=== PATIENT | male | born 1950 | race Hispanic/Latino ===

== ENCOUNTER 2017-07-29 09:04 | Emergency (ER) | payer MEDICARE, OTHER ==
[2017-07-29] MEDS ORDERED: ACETAMINOPHEN 325 MG TAB ONE (09:27)
== END 2017-07-29 10:05 | disposition home or self-care (01) ==
LOC: EDH 09:04
DX: S92.512A Displaced fracture of proximal phalanx of left lesser toe(s), initial encounter for closed fracture (principal); X58.XXXA Exposure to other specified factors, initial encounter; Y93.89 Activity, other specified; Y92.098 Other place in other non-institutional residence as the place of occurrence of the external cause; Y99.8 Other external cause status
CPT/HCPCS: 73660

== ENCOUNTER 2017-12-28 07:17 | Emergency (ER) | payer MEDICARE ==
[2017-12-28 07:47] LABS: BASOPHILS % (AUTO) 0.9 % (0.0-5.0); EOSINOPHILS % (AUTO) 4.2 % (0.0-8.0); HEMATOCRIT 51.3 % (42-54); LYMPHOCYTES % (AUTO) 23.4 % (21.0-51.0); MEAN CORPUSCULAR HGB CONC 34.4 g/dL (32.0-36.0); MEAN CORPUSCULAR VOLUME 93.2 fL (79-99); MONOCYTES % (AUTO) 7.6 % (3.0-13.0); NEUTROPHILS % (AUTO) 63.9 % (40.0-77.0); PLATELET COUNT (AUTO) 238 K/uL (130-400); RED CELL DISTRIBUTION WIDTH 13.1 % (11.0-15.5); WHITE BLOOD COUNT (AUTO) 5.1 K/uL (4.8-10.8)
[2017-12-28 07:58] LABS: POTASSIUM 3.8 mmol/L (3.5-5.1)
[2017-12-28 08:02] LABS: APPEARANCE,URINE CLEAR (CLEAR); BILIRUBIN,URINE NEGATIVE (NEGATIVE); COLOR,URINE YELLOW (YELLOW); GLUCOSE, URINE (UA) NEGATIVE (NEGATIVE); KETONES,URINE NEGATIVE (NEGATIVE); LEUKOCYTE ESTERASE ,URINE TRACE (NEGATIVE); NITRATE,URINE NEGATIVE (NEGATIVE); OCCULT BLOOD,URINE TRACE-INTACT (NEGATIVE); PROTEIN,URINE NEGATIVE (NEGATIVE); UROBILINOGEN,URINE 0.2 mg/dL (0.2-1.0)
[2017-12-28 08:04] LABS: ALBUMIN 3.5 g/dL (3.5-5.0); BILIRUBIN,TOTAL 0.6 mg/dL (0.2-1.0); TOTAL PROTEIN, SERUM 6.8 g/dL (6.0-8.3)
[2017-12-28 08:15] LABS: BACTERIA,URINE Rare /HPF (None Seen); RBC,URINE 0-1 /HPF (0-1); SQUAMOUS EPITHELIAL CELL,UR Rare /HPF (0-2); WBC,URINE 0-1 /HPF (0-1)
== END 2017-12-28 09:03 | disposition home or self-care (01) ==
LOC: EDH 07:17
DX: R30.0 Dysuria (principal); R35.0 Frequency of micturition; R10.9 Unspecified abdominal pain; R50.9 Fever, unspecified; E78.00 Pure hypercholesterolemia, unspecified; Z72.0 Tobacco use; Z88.6 Allergy status to analgesic agent
CPT/HCPCS: 36415; 74176; 80053; 81001; 85025

== ENCOUNTER 2018-05-05 18:46 | Emergency (ER) | payer MEDICARE ==
[2018-05-05 19:36] LABS: APPEARANCE,URINE Clear (CLEAR); BILIRUBIN,URINE Negative (NEGATIVE); COLOR,URINE Yellow (YELLOW); GLUCOSE, URINE (UA) Negative (NEGATIVE); KETONES,URINE Negative (NEGATIVE); LEUKOCYTE ESTERASE ,URINE Trace (NEGATIVE); NITRATE,URINE Negative (NEGATIVE); OCCULT BLOOD,URINE Moderate (NEGATIVE); PH,URINE 5.5 (5.0-8.0); PROTEIN,URINE POS 1+ mg/dL (NEGATIVE)
[2018-05-05 19:45] LABS: BASOPHILS % (AUTO) 0.7 % (0.0-5.0); EOSINOPHILS % (AUTO) 3.8 % (0.0-8.0); HEMATOCRIT 47.8 % (42-54); LYMPHOCYTES % (AUTO) 31.8 % (21.0-51.0); MEAN CORPUSCULAR HGB CONC 34.5 g/dL (32.0-36.0); MEAN CORPUSCULAR VOLUME 92.7 fL (79-99); MONOCYTES % (AUTO) 8.2 % (3.0-13.0); NEUTROPHILS % (AUTO) 55.5 % (40.0-77.0); PLATELET COUNT (AUTO) 226 K/uL (130-400); RED BLOOD CELL COUNT(AUTO) 5.16 MIL/uL (4.50-6.20); RED CELL DISTRIBUTION WIDTH 13.3 % (11.0-15.5); WHITE BLOOD COUNT (AUTO) 4.9 K/uL (4.8-10.8)
[2018-05-05 19:54] LABS: BACTERIA,URINE Rare /HPF (None Seen); MUCUS,URINE Few LPF (None Seen); SQUAMOUS EPITHELIAL CELL,UR Rare /HPF (0-2)
[2018-05-05 19:58] LABS: CREATININE 1.1 mg/dL (0.5-1.5); POTASSIUM 3.5 mmol/L (3.5-5.1)
[2018-05-05 20:00] LABS: INR 0.98 (0.85-1.15); PARTIAL THROMBOPLASTIN TIME 30.8 SEC (26.3-35.5); PROTHROMBIN TIME 10.3 SEC (9.6-11.6)
[2018-05-05 20:05] LABS: ALBUMIN 3.5 g/dL (3.5-5.0); BILIRUBIN,TOTAL 0.4 mg/dL (0.2-1.0); TOTAL PROTEIN, SERUM 6.8 g/dL (6.0-8.3)
[2018-05-05] MEDS ORDERED: ONDANSETRON HCL 4 MG/2 ML VIAL ONE (21:13)
[2018-05-05] MEDS ORDERED: KETOROLAC TROMETHAMINE 15MG/ML ONE (21:13)
== END 2018-05-05 21:31 | disposition home or self-care (01) ==
LOC: EDH 18:46
DX: M54.5 Low back pain (principal); R11.2 Nausea with vomiting, unspecified; R31.29 Other microscopic hematuria; E78.00 Pure hypercholesterolemia, unspecified; Z88.6 Allergy status to analgesic agent; Z72.0 Tobacco use
CPT/HCPCS: 36415; 71045; 74176; 80053; 81001; 82550; 83690; 84484; 85025; 85610; 85730; 87804 ×2; 93005; 96374; 96375; 99285; J1885; J2405

== ENCOUNTER 2019-12-08 10:21 | Emergency (ER) | payer MEDICARE ==
[~2019-12-08] VITALS: Ht 167.6 cm; Wt 88.9 kg
[2019-12-08 10:52] LABS: BASOPHILS % (AUTO) 0.4 % (0.0-5.0); EOSINOPHILS % (AUTO) 2.2 % (0.0-8.0); LYMPHOCYTES % (AUTO) 20.1 % (21.0-51.0); MEAN CORPUSCULAR HEMOGLOBIN 30.8 pg (27.0-33.0); MEAN CORPUSCULAR HGB CONC 34.3 g/dL (32.0-36.0); MEAN CORPUSCULAR VOLUME 89.8 fL (79-99); MONOCYTES % (AUTO) 7.2 % (3.0-13.0); NEUTROPHILS % (AUTO) 69.8 % (40.0-77.0); PLATELET COUNT (AUTO) 239 K/uL (130-400); RED CELL DISTRIBUTION WIDTH 12.5 % (11.0-15.5); WHITE BLOOD COUNT (AUTO) 6.7 K/uL (4.8-10.8)
[2019-12-08 10:54] LABS: APPEARANCE,URINE Clear (CLEAR); BILIRUBIN,URINE Negative (NEGATIVE); COLOR,URINE Yellow (YELLOW); GLUCOSE, URINE (UA) Negative (NEGATIVE); KETONES,URINE Negative (NEGATIVE); LEUKOCYTE ESTERASE ,URINE Trace (NEGATIVE); NITRATE,URINE Negative (NEGATIVE); OCCULT BLOOD,URINE Negative (NEGATIVE); PH,URINE 5.5 (5.0-8.0); PROTEIN,URINE POS 1+ mg/dL (NEGATIVE); UROBILINOGEN,URINE 0.2 mg/dL (0.2-1.0)
[2019-12-08] MEDS ORDERED: ONDANSETRON HCL 4 MG/2 ML VIAL ONE (10:59)
[2019-12-08] MEDS ORDERED: SODIUM CHLORIDE 0.9% 1000ML 1,000 ML IV ONE (10:59)
[2019-12-08] MEDS ORDERED: KETOROLAC TROMETHAMINE 15MG/ML ONE (11:00)
[2019-12-08 11:07] LABS: BACTERIA,URINE Rare /HPF (None Seen); MUCUS,URINE Few LPF (None Seen); RBC,URINE 0-1 /HPF (0-1); SQUAMOUS EPITHELIAL CELL,UR Rare /HPF (0-2)
[2019-12-08 11:08] LABS: CREATININE 1.2 mg/dL (0.5-1.5)
[2019-12-08 11:12] LABS: BILIRUBIN,TOTAL 0.6 mg/dL (0.2-1.0); TOTAL PROTEIN, SERUM 7.6 g/dL (6.0-8.3)
[2019-12-08 11:45] LABS: INR 0.98 (0.85-1.15); PARTIAL THROMBOPLASTIN TIME 28.9 SEC (26.3-35.5); PROTHROMBIN TIME 10.6 SEC (9.6-11.6)
[2019-12-08 12:18] LABS: AMPHET/METH SCREEN,URINE NEGATIVE (NEGATIVE); BARBITURATE SCREEN, URINE NEGATIVE (NEGATIVE); BENZODIAZEPINES SCREEN,URINE NEGATIVE (NEGATIVE); CANNABINOID SCREEN,URINE NEGATIVE (NEGATIVE); COCAINE SCREEN,URINE NEGATIVE (NEGATIVE); OPIATE SCREEN,URINE NEGATIVE (NEGATIVE); PHENCYCLIDINE SCREEN,URINE NEGATIVE (NEGATIVE)
[2019-12-08] MEDS ORDERED: NIFEDIPINE 10 MG CAP ONE (17:09)
[2019-12-08] MEDS ORDERED: NIFEDIPINE 10 MG CAP PO SCH (17:15)
== END 2019-12-08 17:15 | disposition home or self-care (01) ==
LOC: EDH 10:21
DX: R10.11 Right upper quadrant pain (principal); I10 Essential (primary) hypertension; E78.00 Pure hypercholesterolemia, unspecified; Z88.6 Allergy status to analgesic agent
CPT/HCPCS: 36415; 70450; 74176; 80053; 80305; 81001; 82150; 82550; 83690; 84484 ×2; 85025; 85610; 85730; 93005 ×2; 96365; 96366; 96375; 99285; J1885; J2405; J7030

== ENCOUNTER 2020-08-05 14:42 | Emergency (ER) | payer MEDICARE ==
[~2020-08-05] VITALS: Ht 167.6 cm; Wt 86.2 kg
[2020-08-05] MEDS ORDERED: 0.9%NACL 1000ML 1,000 ML IV STA (14:53)
[2020-08-05] MEDS ORDERED: KETOROLAC 30MG VIAL (30MG/ML) IVP ONE (15:00)
[2020-08-05] MEDS ORDERED: ONDANSETRON 4MG INJ IVP ONE (15:00)
[2020-08-05] MEDS ORDERED: FENTANYL CITRATE PF 50 MCG/1 ML 2ML VIAL IVP ONE (15:00)
[2020-08-05 15:17] LABS: HEMATOCRIT 48.2 % (42-54); LYMPHOCYTES % (AUTO) 28.9 % (21.0-51.0); MEAN CORPUSCULAR HEMOGLOBIN 29.8 pg (27.0-33.0); MEAN CORPUSCULAR HGB CONC 33.4 g/dL (32.0-36.0); MEAN CORPUSCULAR VOLUME 89.1 fL (79-99); MONOCYTES % (AUTO) 11.1 % (3.0-13.0); NEUTROPHILS % (AUTO) 55.8 % (40.0-77.0); PLATELET COUNT (AUTO) 256 K/uL (130-400); RED BLOOD CELL COUNT(AUTO) 5.41 MIL/uL (4.50-6.20); RED CELL DISTRIBUTION WIDTH 12.9 % (11.0-15.5); WHITE BLOOD COUNT (AUTO) 5.1 K/uL (4.8-10.8)
[2020-08-05 15:32] LABS: CREATININE 1.2 mg/dL (0.5-1.5); POTASSIUM 3.7 mmol/L (3.5-5.1)
[2020-08-05 15:36] LABS: ALBUMIN 3.5 g/dL (3.5-5.0); BILIRUBIN,TOTAL 0.5 mg/dL (0.2-1.0); TOTAL PROTEIN, SERUM 6.8 g/dL (6.0-8.3)
[2020-08-05 15:56] LABS: APPEARANCE,URINE Clear (CLEAR); BILIRUBIN,URINE Negative (NEGATIVE); COLOR,URINE Yellow (YELLOW); GLUCOSE, URINE (UA) Negative (NEGATIVE); KETONES,URINE Negative (NEGATIVE); LEUKOCYTE ESTERASE ,URINE Trace (NEGATIVE); NITRATE,URINE Negative (NEGATIVE); OCCULT BLOOD,URINE Negative (NEGATIVE); PH,URINE 6.5 (5.0-8.0); PROTEIN,URINE Trace mg/dL (NEGATIVE)
[2020-08-05] MEDS ORDERED: IBUP-2070 PO (16:21)
[2020-08-05 16:23] LABS: BACTERIA,URINE Few /HPF (None Seen); MUCUS,URINE Few LPF (None Seen); RBC,URINE 0-1 /HPF (0-1); SQUAMOUS EPITHELIAL CELL,UR 0-2 /HPF (0-2)
[2020-08-05 16:55] VITALS: BP 158/87
== END 2020-08-05 17:31 | disposition home or self-care (01) ==
LOC: EDH 15:02
DX: N23 Unspecified renal colic (principal); R11.2 Nausea with vomiting, unspecified; Z88.5 Allergy status to narcotic agent; Z79.899 Other long term (current) drug therapy; Z87.442 Personal history of urinary calculi
CPT/HCPCS: 36415; 74176; 80053; 81001; 85025; 87088; 96361; 96374; 96375; 99284; J1885; J2405; J7030

== ENCOUNTER 2020-10-19 07:39 | Day surgery (SDC) | payer MEDICARE ==
[2020-10-18 13:14] LABS: BASOPHILS % (AUTO) 0.6 % (0.0-5.0); EOSINOPHILS % (AUTO) 2.3 % (0.0-8.0); HEMATOCRIT 47.2 % (42-54); LYMPHOCYTES % (AUTO) 26.9 % (21.0-51.0); MEAN CORPUSCULAR HGB CONC 32.8 g/dL (32.0-36.0); MEAN CORPUSCULAR VOLUME 91.5 fL (79-99); MONOCYTES % (AUTO) 12.6 % (3.0-13.0); NEUTROPHILS % (AUTO) 56.8 % (40.0-77.0); PLATELET COUNT (AUTO) 258 K/uL (130-400); RED BLOOD CELL COUNT(AUTO) 5.16 MIL/uL (4.50-6.20); WHITE BLOOD COUNT (AUTO) 5.2 K/uL (4.8-10.8)
[2020-10-19] VITALS (19 sets, daily range): BP systolic 133–158; BP diastolic 80–98
[~2020-10-19] VITALS: Ht 167.6 cm; Wt 89.0 kg
[~2020-10-19 07:39] MED LIST: ATOR40TA71 PO; CEFTRIAXONE 1G VIAL IVP SCH; DICLOFENAC NA TP; GABA300C PO; LIPITOR PO; MIRA50TA PO; OMEP40CA21 PO; TAMS-1 PO; TRAM50TA4 PO
[2020-10-19] MEDS ORDERED: IOHEXOL-350 50ML VIAL IV ONE (09:58)
[2020-10-19] MEDS ORDERED: LACTATED RINGERS 1000ML 1,000 ML IV ONE (10:19)
[2020-10-19] MEDS ORDERED: PROPOFOL 10 MG/ML 20ML VIAL IV ONE (11:35)
[2020-10-19] MEDS ORDERED: FENTANYL CITRATE PF 50 MCG/1 ML 2ML VIAL ONE ×2 (11:35→12:13)
[2020-10-19] MEDS ORDERED: LIDOCAINE PF 100MG/5ML (2%) SYRINGE 5ML ONE (11:35)
[2020-10-19] MEDS ORDERED: CEFTRIAXONE 1G VIAL IVP ONE (11:57)
[2020-10-19] MEDS ORDERED: OPIUM/BELLADONNA ALKALOIDS 1 EACH SUPP.RECT RC ONE (12:27)
[2020-10-19] MEDS ORDERED: MEPERIDINE-PF 25 MG/ML SYG ONE (13:21)
[2020-10-19] MEDS ORDERED: PHENAZOPYRIDINE HCL 200 MG TABLET ONE (13:31)
[2020-10-19] MEDS ORDERED: ONDANSETRON 4MG INJ ONE (13:53)
== END 2020-10-19 14:30 | disposition home or self-care (01) ==
LOC: DAH 07:39
PROVIDERS: ATTEND Urology
DX: D09.0 Carcinoma in situ of bladder (principal); Z20.822 Contact with and (suspected) exposure to COVID-19; N32.81 Overactive bladder; E78.5 Hyperlipidemia, unspecified; I25.10 Atherosclerotic heart disease of native coronary artery without angina pectoris; Z87.891 Personal history of nicotine dependence; Z88.6 Allergy status to analgesic agent; Z98.890 Other specified postprocedural states
CPT/HCPCS: 36415 ×2; 52204; 71045; 74177; 74420; 80053; 81001; 82550; 83605 ×2; 83735; 83874; 84145; 84484 ×2; 85025 ×2; 85610; 85730; 87040 ×2; 87088; 87635 ×2; 87804 ×2; 88305; 88341; 88342; 93005 ×2; 94640; 94664; 99291; A4213; A4215; A4221; A4222; A4223; A4344; A4354; A4358; A4510; A4600; A4663; A5113; A6260; C1758; C9803 ×2; J0696 ×2; J2001; J2175; J2185; J2405; J2704; J3010 ×2; J7030 ×2; J7120 ×2; Q9967 ×2; G0378

== ENCOUNTER 2020-10-19 16:42 | Inpatient (IN) | payer MEDICARE ==
[~2020-10-19] VITALS: Ht 167.6 cm; Wt 86.6 kg
[~2020-10-19 16:42] MED LIST changes: -CEFTRIAXONE 1G VIAL IVP SCH
[2020-10-19 16:46] VITALS: BP 144/73
[2020-10-19] MEDS ORDERED: ACETAMINOPHEN 500 MG TABLET PO SCH (17:00)
[2020-10-19] MEDS ORDERED: 0.9%NACL 1000ML 1,000 ML IV ONE ×2 (17:00→17:15)
[2020-10-19 17:04] LABS: APPEARANCE,URINE Clear (CLEAR); BILIRUBIN,URINE Negative (NEGATIVE); COLOR,URINE Dark Yellow (YELLOW); GLUCOSE, URINE (UA) TRACE mg/dL (NEGATIVE); KETONES,URINE Trace mg/dL (NEGATIVE); LEUKOCYTE ESTERASE ,URINE Trace (NEGATIVE); NITRATE,URINE Positive (NEGATIVE); OCCULT BLOOD,URINE Large (NEGATIVE); PH,URINE 7.5 (5.0-8.0); PROTEIN,URINE POS 2+ mg/dL (NEGATIVE)
[2020-10-19 17:22] LABS: BACTERIA,URINE Few /HPF (None Seen); MUCUS,URINE Few LPF (None Seen); RBC,URINE 51-100 /HPF (0-1); SQUAMOUS EPITHELIAL CELL,UR Rare /HPF (0-2)
[2020-10-19 17:33] VITALS: BP 122/67
[2020-10-19 17:34] LABS: BASOPHILS % (AUTO) 0.2 % (0.0-5.0); HEMATOCRIT 48.9 % (42-54); LYMPHOCYTES % (AUTO) 3.4 % (21.0-51.0); MEAN CORPUSCULAR HEMOGLOBIN 30.2 pg (27.0-33.0); MEAN CORPUSCULAR HGB CONC 33.5 g/dL (32.0-36.0); MEAN CORPUSCULAR VOLUME 90.1 fL (79-99); MONOCYTES % (AUTO) 3.1 % (3.0-13.0); PLATELET COUNT (AUTO) 240 K/uL (130-400); RED BLOOD CELL COUNT(AUTO) 5.43 MIL/uL (4.50-6.20); WHITE BLOOD COUNT (AUTO) 14.1 K/uL (4.8-10.8)
[2020-10-19 17:42] LABS: CREATININE 1.1 mg/dL (0.5-1.5); POTASSIUM 4.3 mmol/L (3.5-5.1)
[2020-10-19 17:47] LABS: ALBUMIN 3.5 g/dL (3.5-5.0); TOTAL PROTEIN, SERUM 6.8 g/dL (6.0-8.3)
[2020-10-19] MEDS ORDERED: MEROPENEM 1 GM VIAL IVP SCH (18:00)
[2020-10-19] MEDS ORDERED: 0.9%NACL 100ML 100 ML ONE (18:22)
[2020-10-19 18:27] VITALS: BP 108/57
[2020-10-19] MEDS ORDERED: ACETAMINOPHEN 325 MG TAB PO PRN ×3 (18:30→19:00)
[2020-10-19] MEDS ORDERED: NITROGLYCERIN 0.4 MG SL TAB SL PRN (18:30)
[2020-10-19 18:53] LABS: INR 1.03 (0.85-1.15); PROTHROMBIN TIME 11.2 SEC (9.6-11.6)
[2020-10-19 18:54] LABS: PARTIAL THROMBOPLASTIN TIME 26.9 SEC (26.3-35.5)
[2020-10-19] MEDS ORDERED: IOHEXOL-350 75 ML VIAL IV ONE (18:58)
[2020-10-19] MEDS ORDERED: MAGNESIUM 2GM PREMIX 50ML 50 ML IV SCH (19:00)
[2020-10-19] MEDS ORDERED: 0.9%NACL 1000ML 1,914 ML IV ONE (19:00)
[2020-10-19] MEDS: 0.9%NACL 1000ML 1,000 ML IV SCH (19:32)
[2020-10-19 19:49] VITALS: BP 105/66
[2020-10-19] MEDS: FAMOTIDINE 20MG TAB PO SCH (21:41)
[2020-10-19] MEDS: PHENAZOPYRIDINE HCL 200 MG TABLET PO SCH (21:41)
[2020-10-19 21:46] VITALS: BP 108/67
[2020-10-19] MEDS: 0.9% NACL 250ML IVPB SCH (22:08)
[2020-10-19] MEDS: AZITHROMYCIN 500MG VIAL IVPB SCH (22:08)
[2020-10-19] MEDS ORDERED: IPRATROPIUM/ALBUTEROL SULFATE 3 ML SOLUTION IH PRN (22:30)
[2020-10-19 23:47] VITALS: BP 105/66
[2020-10-20] VITALS (8 sets, daily range): BP systolic 104–161; BP diastolic 61–98
[2020-10-20] MEDS: MEROPENEM 1 GM VIAL IVP SCH ×3 (02:06→17:03)
[2020-10-20] MEDS: 0.9%NACL 1000ML 1,000 ML IV SCH ×2 (05:53→14:24)
[2020-10-20 08:36] LABS: HEMATOCRIT 44.7 % (42-54); MEAN CORPUSCULAR HGB CONC 33.3 g/dL (32.0-36.0); MEAN CORPUSCULAR VOLUME 89.9 fL (79-99); PLATELET COUNT (AUTO) 215 K/uL (130-400); RED BLOOD CELL COUNT(AUTO) 4.97 MIL/uL (4.50-6.20); RED CELL DISTRIBUTION WIDTH 14.2 % (11.0-15.5); WHITE BLOOD COUNT (AUTO) 13.2 K/uL (4.8-10.8)
[2020-10-20 08:56] LABS: ALBUMIN 2.8 g/dL (3.5-5.0); CREATININE 1.2 mg/dL (0.5-1.5); MAGNESIUM 1.9 mg/dL (1.80-2.40); POTASSIUM 4.5 mmol/L (3.5-5.1); TOTAL PROTEIN, SERUM 5.9 g/dL (6.0-8.3)
[2020-10-20] MEDS: PHENAZOPYRIDINE HCL 200 MG TABLET PO SCH ×2 (09:27→21:29)
[2020-10-20] MEDS: FAMOTIDINE 20MG TAB PO SCH ×2 (09:27→20:08)
[2020-10-20 09:36] LABS: EOSINOPHILS % (MANUAL) 1 % (1-6); LYMPHOCYTES % (MANUAL) 14 % (22-44); MONOCYTES % (MANUAL) 3 % (2-9); SEGMENTED NEUTROPHILS % 82 % (40-70)
[2020-10-20 09:37] LABS: MAN.DIFF COMMENT-IMPRESSION MANUAL DIFFERENTIAL; PLATELET MORPHOLOGY COMMENT ADEQUATE
[2020-10-20] MEDS ORDERED: ONDANSETRON 4MG INJ IVP PRN (10:00)
[2020-10-20] MEDS ORDERED: AZITHROMYCIN 500MG+NS 250ML 250 ML IV ONE (21:35)
[2020-10-20] MEDS: AZITHROMYCIN 500MG VIAL IVPB SCH (21:48)
[2020-10-20] MEDS: 0.9% NACL 250ML IVPB SCH (21:49)
[2020-10-21] VITALS: BP 135/79
[2020-10-21] MEDS: 0.9%NACL 1000ML 1,000 ML IV SCH ×2 (00:45→10:30)
[2020-10-21] MEDS: MEROPENEM 1 GM VIAL IVP SCH ×2 (01:06→08:15)
[2020-10-21 04:00] VITALS: BP 120/80
[2020-10-21 06:15] LABS: HEMATOCRIT 43.5 % (42-54); MEAN CORPUSCULAR HEMOGLOBIN 29.7 pg (27.0-33.0); MEAN CORPUSCULAR HGB CONC 33.3 g/dL (32.0-36.0); MEAN CORPUSCULAR VOLUME 89.1 fL (79-99); RED BLOOD CELL COUNT(AUTO) 4.88 MIL/uL (4.50-6.20); RED CELL DISTRIBUTION WIDTH 14.2 % (11.0-15.5); WHITE BLOOD COUNT (AUTO) 7.9 K/uL (4.8-10.8)
[2020-10-21 08:00] VITALS: BP 144/77
[2020-10-21] MEDS: PHENAZOPYRIDINE HCL 200 MG TABLET PO SCH (08:15)
[2020-10-21] MEDS: FAMOTIDINE 20MG TAB PO SCH (08:15)
[2020-10-21 11:42] VITALS: BP 151/92
== END 2020-10-21 16:52 | disposition home or self-care (01) | DRG 698 ==
LOC: EDH 16:42 → EDHIP 18:17 → 4CH 10-20 07:05
PROVIDERS: ADMIT Hospitalist; ATTEND Hospitalist
DX: T83.511A Infection and inflammatory reaction due to indwelling urethral catheter, initial encounter (principal); A41.9 Sepsis, unspecified organism; J18.9 Pneumonia, unspecified organism; R65.20 Severe sepsis without septic shock; N39.0 Urinary tract infection, site not specified; Z20.822 Contact with and (suspected) exposure to COVID-19; M19.90 Unspecified osteoarthritis, unspecified site; K21.9 Gastro-esophageal reflux disease without esophagitis; E78.5 Hyperlipidemia, unspecified; G62.9 Polyneuropathy, unspecified; E83.42 Hypomagnesemia; E78.00 Pure hypercholesterolemia, unspecified; Y84.6 Urinary catheterization as the cause of abnormal reaction of the patient, or of later complication, without mention of misadventure at the time of the procedure; I10 Essential (primary) hypertension; Z87.440 Personal history of urinary (tract) infections; Z87.891 Personal history of nicotine dependence; Y92.89 Other specified places as the place of occurrence of the external cause; Z88.5 Allergy status to narcotic agent; Z82.49 Family history of ischemic heart disease and other diseases of the circulatory system
CPT/HCPCS: 36415; 71045; 74177; 80053; 81001; 82550; 83605; 83735; 83874; 84145; 84484; 85025; 85027; 85610; 85730; 87040; 87088; 87635; 87804; 93005; 94640; 94664; 99291; C9803; G0378; J0456; J2185; J7030; Q9967

== ENCOUNTER 2021-03-07 09:02 | Observation (INO) | payer MEDICARE ==
[~2021-03-07] VITALS: Ht 167.6 cm; Wt 85.1 kg
[~2021-03-07 09:02] MED LIST changes: +CEPH500B PO; +PHEN-847 PO
[2021-03-07 09:22] LABS: APPEARANCE,URINE Clear (CLEAR); BILIRUBIN,URINE Negative (NEGATIVE); COLOR,URINE Dark Yellow (YELLOW); GLUCOSE, URINE (UA) Negative (NEGATIVE); KETONES,URINE Negative (NEGATIVE); LEUKOCYTE ESTERASE ,URINE Moderate (NEGATIVE); NITRATE,URINE Positive (NEGATIVE); OCCULT BLOOD,URINE Moderate (NEGATIVE); PROTEIN,URINE POS 1+ mg/dL (NEGATIVE)
[2021-03-07 09:23] LABS: EOSINOPHILS % (AUTO) 2.6 % (0.0-8.0); HEMATOCRIT 52.9 % (42-54); LYMPHOCYTES % (AUTO) 28.7 % (21.0-51.0); MEAN CORPUSCULAR HEMOGLOBIN 29.7 pg (27.0-33.0); MEAN CORPUSCULAR HGB CONC 33.3 g/dL (32.0-36.0); MEAN CORPUSCULAR VOLUME 89.2 fL (79-99); MONOCYTES % (AUTO) 8.1 % (3.0-13.0); NEUTROPHILS % (AUTO) 59.2 % (40.0-77.0); PLATELET COUNT (AUTO) 270 K/uL (130-400); RED BLOOD CELL COUNT(AUTO) 5.93 MIL/uL (4.50-6.20); RED CELL DISTRIBUTION WIDTH 13.7 % (11.0-15.5); WHITE BLOOD COUNT (AUTO) 6.8 K/uL (4.8-10.8)
[2021-03-07] MEDS ORDERED: MORPHINE 4 MG SYG IV SCH (09:30)
[2021-03-07] MEDS ORDERED: KETOROLAC 15MG/ML VIAL (15MG/ML) IV SCH (09:30)
[2021-03-07] MEDS ORDERED: ONDANSETRON 4MG INJ IVP SCH (09:30)
[2021-03-07] MEDS ORDERED: 0.9%NACL 1000ML 1,000 ML IV SCH (09:30)
[2021-03-07 09:36] LABS: BILIRUBIN,TOTAL 0.8 mg/dL (0.2-1.0); CREATININE 1.3 mg/dL (0.5-1.5); POTASSIUM 4.7 mmol/L (3.5-5.1); TOTAL PROTEIN, SERUM 7.5 g/dL (6.0-8.3)
[2021-03-07 09:37] LABS: BACTERIA,URINE Rare /HPF (None Seen); SQUAMOUS EPITHELIAL CELL,UR Rare /HPF (0-2); WBC,URINE 0-1 /HPF (0-1)
[2021-03-07] MEDS ORDERED: AMIT10TA6 PO (10:04)
[2021-03-07] MEDS ORDERED: ASPI-1005 PO (10:04)
[2021-03-07] MEDS ORDERED: MORPHINE 2 MG SYG IVP PRN (12:30)
[2021-03-07] MEDS ORDERED: ZOSYN 3.375GM +NS 50ML IV SCH (12:30)
[2021-03-07] MEDS ORDERED: ONDANSETRON 4MG INJ IVP PRN (12:30)
[2021-03-07] MEDS: 0.9%NACL 1000ML 1,000 ML IV SCH (13:11)
[2021-03-07] MEDS: ZOSYN 3.375GM+NS 50ML 50 ML IV SCH ×2 (13:11→21:18)
[2021-03-07] MEDS ORDERED: (Mirabegron (Myrbetriq) 50 MG) PO SCH (21:00)
[2021-03-07] MEDS ORDERED: ATORVASTATIN 40 MG TABLET PO SCH (21:00)
[2021-03-07] MEDS ORDERED: TAMSULOSIN HCL 0.4 MG CAP.ER.24H PO SCH (21:00)
[2021-03-07] MEDS: GABAPENTIN 300 MG CAPSULE PO SCH (21:18)
[2021-03-08] MEDS: 0.9%NACL 1000ML 1,000 ML IV SCH ×2 (01:37→15:10)
[2021-03-08 02:45] VITALS: BP 150/87
[2021-03-08] MEDS: ZOSYN 3.375GM+NS 50ML 50 ML IV SCH ×2 (04:49→12:58)
[2021-03-08 05:25] VITALS: BP 159/90
[2021-03-08 06:16] LABS: BASOPHILS % (AUTO) 0.5 % (0.0-5.0); EOSINOPHILS % (AUTO) 1.7 % (0.0-8.0); HEMATOCRIT 50.7 % (42-54); LYMPHOCYTES % (AUTO) 19.5 % (21.0-51.0); MEAN CORPUSCULAR HEMOGLOBIN 29.2 pg (27.0-33.0); MEAN CORPUSCULAR HGB CONC 32.7 g/dL (32.0-36.0); MEAN CORPUSCULAR VOLUME 89.1 fL (79-99); MONOCYTES % (AUTO) 7.9 % (3.0-13.0); NEUTROPHILS % (AUTO) 70.1 % (40.0-77.0); PLATELET COUNT (AUTO) 212 K/uL (130-400); RED BLOOD CELL COUNT(AUTO) 5.69 MIL/uL (4.50-6.20); RED CELL DISTRIBUTION WIDTH 13.3 % (11.0-15.5); WHITE BLOOD COUNT (AUTO) 5.7 K/uL (4.8-10.8)
[2021-03-08 06:35] LABS: ALBUMIN 3.5 g/dL (3.5-5.0); BILIRUBIN,TOTAL 1.1 mg/dL (0.2-1.0); CREATININE 1.2 mg/dL (0.5-1.5); POTASSIUM 4.2 mmol/L (3.5-5.1); TOTAL PROTEIN, SERUM 6.5 g/dL (6.0-8.3)
[2021-03-08 07:30] VITALS: BP 165/95
[2021-03-08] MEDS: GABAPENTIN 300 MG CAPSULE PO SCH ×2 (08:52→13:52)
[2021-03-08] MEDS ORDERED: ASPIRIN 81MG CHEW TAB PO SCH (09:00)
[2021-03-08] MEDS ORDERED: POLYETHYLENE GLYCOL 3350 17 GM POWD.PACK PO SCH (09:00)
[2021-03-08] MEDS ORDERED: PANTOPRAZOLE 40 MG TAB DR PO SCH (09:00)
[2021-03-08] MEDS ORDERED: AMITRIPTYLINE 10MG TAB PO SCH (09:00)
[2021-03-08 11:00] VITALS: BP 156/98
[2021-03-08 16:00] VITALS: BP 141/89
[2021-03-08] MEDS ORDERED: MAGNESIUM CITRATE 296 ML SOLUTION PO ONE (18:20)
== END 2021-03-08 20:05 | disposition home or self-care (01) ==
LOC: EDH 09:02 → EDHIP 12:17 → 3DH 03-08 02:14
PROVIDERS: ADMIT Internal Medicine; ATTEND Internal Medicine
DX: K76.0 Fatty (change of) liver, not elsewhere classified (principal); R11.2 Nausea with vomiting, unspecified; N39.0 Urinary tract infection, site not specified; N40.0 Benign prostatic hyperplasia without lower urinary tract symptoms; E78.5 Hyperlipidemia, unspecified; E86.1 Hypovolemia; Z20.822 Contact with and (suspected) exposure to COVID-19; E87.1 Hypo-osmolality and hyponatremia; I10 Essential (primary) hypertension; Z79.899 Other long term (current) drug therapy; Z85.51 Personal history of malignant neoplasm of bladder
CPT/HCPCS: 36415 ×2; 76705; 80053 ×2; 81001; 82150; 83690; 83735; 84145; 84484; 85025 ×2; 85651; 86140; 87088; 87635; 96361; 96365; 96366 ×2; 96375; 96376; 99284; G0378 ×32; J1885; J2270; J2405 ×2; J2543 ×4; J7030 ×2

== ENCOUNTER 2021-04-01 18:34 | Emergency (ER) | payer MEDICARE ==
[~2021-04-01] VITALS: Ht 167.6 cm; Wt 86.2 kg
[~2021-04-01 18:34] MED LIST changes: +AMIT10TA6 PO; +ASPI-1005 PO
[2021-04-01 18:50] VITALS: BP 167/97
[2021-04-01 20:46] LABS: BASOPHILS % (AUTO) 0.7 % (0.0-5.0); EOSINOPHILS % (AUTO) 3.1 % (0.0-8.0); HEMATOCRIT 51.1 % (42-54); LYMPHOCYTES % (AUTO) 22.9 % (21.0-51.0); MEAN CORPUSCULAR HEMOGLOBIN 30.1 pg (27.0-33.0); MEAN CORPUSCULAR HGB CONC 32.9 g/dL (32.0-36.0); MEAN CORPUSCULAR VOLUME 91.4 fL (79-99); MONOCYTES % (AUTO) 10.1 % (3.0-13.0); NEUTROPHILS % (AUTO) 62.7 % (40.0-77.0); PLATELET COUNT (AUTO) 281 K/uL (130-400); RED BLOOD CELL COUNT(AUTO) 5.59 MIL/uL (4.50-6.20); RED CELL DISTRIBUTION WIDTH 13.8 % (11.0-15.5); WHITE BLOOD COUNT (AUTO) 5.7 K/uL (4.8-10.8)
[2021-04-01 20:48] LABS: APPEARANCE,URINE CLEAR (CLEAR); BILIRUBIN,URINE NEGATIVE (NEGATIVE); COLOR,URINE YELLOW (YELLOW); GLUCOSE, URINE (UA) NEGATIVE (NEGATIVE); KETONES,URINE NEGATIVE (NEGATIVE); LEUKOCYTE ESTERASE ,URINE TRACE (NEGATIVE); NITRATE,URINE NEGATIVE (NEGATIVE); OCCULT BLOOD,URINE NEGATIVE (NEGATIVE); PROTEIN,URINE NEGATIVE (NEGATIVE)
[2021-04-01 21:00] LABS: CREATININE 1.2 mg/dL (0.5-1.5); POTASSIUM 4.7 mmol/L (3.5-5.1)
[2021-04-01 21:02] LABS: BACTERIA,URINE None Seen /HPF (None Seen)
[2021-04-01 21:03] LABS: SQUAMOUS EPITHELIAL CELL,UR Rare /HPF (0-2)
[2021-04-01 21:05] LABS: ALBUMIN 3.7 g/dL (3.5-5.0); BILIRUBIN,TOTAL 0.5 mg/dL (0.2-1.0); TOTAL PROTEIN, SERUM 7.2 g/dL (6.0-8.3)
[2021-04-01] MEDS ORDERED: CEPH500B PO (22:18)
[2021-04-01] MEDS ORDERED: PHEN-847 PO (22:18)
[2021-04-01] MEDS ORDERED: LIDOCAINE HCL-MPF 1% 2ML VIAL ONE (22:20)
[2021-04-01] MEDS ORDERED: CEFTRIAXONE 1G VIAL IM ONE (22:30)
[2021-04-01] MEDS ORDERED: PHENAZOPYRIDINE HCL 200 MG TABLET PO ONE (22:30)
== END 2021-04-01 22:44 | disposition home or self-care (01) ==
LOC: EDH 18:34
DX: N39.0 Urinary tract infection, site not specified (principal); R30.0 Dysuria; E78.00 Pure hypercholesterolemia, unspecified; Z98.890 Other specified postprocedural states; Z72.0 Tobacco use; Z88.5 Allergy status to narcotic agent; Z79.899 Other long term (current) drug therapy
CPT/HCPCS: 36415; 80053; 81001; 85025; 96372; 99283; J0696; J3490

== ENCOUNTER → 2023-03-31 | Outpatient (CLI) | payer MEDICARE ==
[2023-03-31] MEDS: REGADENOSON 0.4 MG/5 ML PF SYG IVP ONE (09:24)
== END | disposition home or self-care (01) ==
LOC: SHCH 07:59
PROVIDERS: ATTEND Student in an Organized Health Care Education/Training Program
DX: Z01.818 Encounter for other preprocedural examination (principal); I25.119 Atherosclerotic heart disease of native coronary artery with unspecified angina pectoris; G80.9 Cerebral palsy, unspecified; E78.5 Hyperlipidemia, unspecified
CPT/HCPCS: 78452; 96374; 93017; J2785; A9500 ×2

== ENCOUNTER 2023-04-08 06:05 | Observation (INO) | payer MEDICARE ==
[2023-04-07 09:39] VITALS: BP 164/93; PULSE 65; RESP 18
[2023-04-07 09:40] LABS: BASOPHILS # (AUTO) 0.04 K/uL (0.00-0.20); BASOPHILS % (AUTO) 0.6 % (0.0-5.0); EOSINOPHILS # (AUTO) 0.09 K/uL (0.00-0.70); EOSINOPHILS % (AUTO) 1.4 % (0.0-8.0); HEMATOCRIT 46.5 % (42-54); IMMATURE GRANULOCYTE ABSOLUTE 0.02 K/uL (0-1); LYMPHOCYTES % (AUTO) 15.2 % (21.0-51.0); MEAN CORPUSCULAR HEMOGLOBIN 27.5 pg (27.0-33.0); MEAN CORPUSCULAR HGB CONC 32.7 g/dL (32.0-36.0); MEAN CORPUSCULAR VOLUME 84.1 fL (79-99); MONOCYTES # (AUTO) 0.4 K/uL (0.1-1.0); MONOCYTES % (AUTO) 5.7 % (3.0-13.0); NEUTROPHILS # (AUTO) 4.8 K/uL (1.8-7.7); NEUTROPHILS % (AUTO) 76.8 % (40.0-77.0); PLATELET COUNT (AUTO) 268 K/uL (130-400); RED BLOOD CELL COUNT(AUTO) 5.53 MIL/uL (4.50-6.20); WHITE BLOOD COUNT (AUTO) 6.3 K/uL (4.8-10.8)
[2023-04-07 09:58] LABS: ALBUMIN 3.7 g/dL (3.5-5.0); CREATININE 1.2 mg/dL (0.5-1.5); POTASSIUM 4.2 mmol/L (3.5-5.1)
[2023-04-07 10:48] LABS: INR 0.94 (0.85-1.15); PROTHROMBIN TIME 10.9 SEC (9.6-11.6)
[~2023-04-08] VITALS: Ht 167.6 cm; Wt 84.8 kg
[2023-04-08] VITALS (36 sets, daily range): BP systolic 120–179; BP diastolic 79–104; PULSE 53–74; RESP 12–18; O2SAT 98
[~2023-04-08 06:05] MED LIST changes: -AMIT10TA6 PO; -ASPI-1005 PO; -CEPH500B PO; -DICLOFENAC NA TP; +DUTA0.5C37 PO; -GABA300C PO; -LIPITOR PO; +LOSA50TA64 PO; -MIRA50TA PO; -OMEP40CA21 PO; +PHARMACY COMMUNICATION MISC SCH; -PHEN-847 PO; -TRAM50TA4 PO; +VALA100031 PO; +VIBE75TA PO
[2023-04-08] MEDS: CEFAZOLIN SODIUM 2 GM VIAL ONE (07:52)
[2023-04-08] MEDS: LACTATED RINGERS 1000ML 1,000 ML IV ONE (07:53)
[2023-04-08] MEDS ORDERED: ROCURONIUM BROMIDE 10MG/1ML 5ML VL ONE ×2 (08:43→10:15)
[2023-04-08] MEDS ORDERED: PROPOFOL 10 MG/ML 20ML VIAL IV ONE (08:43)
[2023-04-08] MEDS ORDERED: SUCCINYLCHOLINE CHLORIDE 20 MG/ML 10 ML VIAL ONE (08:43)
[2023-04-08] MEDS ORDERED: MIDAZOLAM HCL 1 MG/ML 2ML VIAL ONE (08:43)
[2023-04-08] MEDS ORDERED: FENTANYL CITRATE PF 50 MCG/1 ML 2ML VIAL ONE ×3 (08:44→09:52)
[2023-04-08] MEDS ORDERED: ROPIVACAINE 0.5% 5MG/ML 30ML ONE (08:44)
[2023-04-08] MEDS: TRANEXAMIC ACID 1000MG/10ML ONE (09:20)
[2023-04-08] MEDS: KETOROLAC 30MG VIAL (30MG/ML) ONE (09:39)
[2023-04-08] MEDS: ROPIVACAINE 0.5% 5MG/ML 30ML ONE (09:39)
[2023-04-08] MEDS ORDERED: NEOSTIGMINE METHYLSULFATE 1MG/ML IV ONE (11:12)
[2023-04-08] MEDS ORDERED: GLYCOPYRROLATE 0.2 MG/ML 5 ML VIAL ONE (11:12)
[2023-04-08] MEDS: KETOROLAC 15MG/ML VIAL (15MG/ML) IV SCH (11:30)
[2023-04-08] MEDS ORDERED: KCL 20 MEQ ERTAB PO PRN (11:30)
[2023-04-08] MEDS ORDERED: CALCIUM CARB 500MG PO PRN (11:30)
[2023-04-08] MEDS ORDERED: POTASSIUM CHLORIDE 20MEQ/100ML 100 ML IV PRN (11:30)
[2023-04-08] MEDS ORDERED: ONDANSETRON 4MG INJ IVP PRN (11:30)
[2023-04-08] MEDS ORDERED: POTASSIUM CHLORIDE 10% ELIXIR 20 MEQ/15 ML UDCUP PO PRN (11:30)
[2023-04-08] MEDS ORDERED: KETOROLAC 15MG/ML VIAL (15MG/ML) IV PRN (11:30)
[2023-04-08] MEDS ORDERED: FERROUS FUMARATE 324 MG TABLET PO PRN (11:30)
[2023-04-08] MEDS ORDERED: CYCLOBENZAPRINE HCL 10 MG TABLET PO PRN (11:30)
[2023-04-08] MEDS: ONDANSETRON 4MG INJ ONE (11:31)
[2023-04-08] MEDS: HYDROMORPHONE 1 MG INJ ONE ×2 (12:02→13:02)
[2023-04-08] MEDS: 0.9%NACL 1000ML 1,000 ML IV ONE (12:22)
[2023-04-08] MEDS: 0.9%NACL 1000ML 1,000 ML IV SCH (14:40)
[2023-04-08] MEDS: GABAPENTIN 100 MG CAPSULE PO SCH (16:37)
[2023-04-08] MEDS: CEFAZOLIN SODIUM 2 GM VIAL IVPB SCH (16:45)
[2023-04-08] MEDS: HYDROCODONE/ACETAMINOPHEN 5/325 MG TAB PO PRN (18:29)
[2023-04-08] MEDS: TAMSULOSIN HCL 0.4 MG CAP.ER.24H PO SCH (19:40)
[2023-04-08] MEDS: ATORVASTATIN 40 MG TABLET PO SCH (19:41)
[2023-04-08] MEDS: DOCUSATE SODIUM 100 MG CAP PO SCH (19:41)
[2023-04-08] MEDS: VALACYCLOVIR HCL 500 MG TABLET PO SCH (19:42)
[2023-04-08] MEDS ORDERED: HYDRALAZINE 20MG/ML VIAL IV PRN (22:30)
[2023-04-09 03:40] VITALS: BP 152/82; PULSE 74; RESP 18
[2023-04-09 05:02] LABS: HEMATOCRIT 38.7 % (42-54); MEAN CORPUSCULAR HEMOGLOBIN 27.9 pg (27.0-33.0); MEAN CORPUSCULAR HGB CONC 32.6 g/dL (32.0-36.0); MEAN CORPUSCULAR VOLUME 85.6 fL (79-99); RED BLOOD CELL COUNT(AUTO) 4.52 MIL/uL (4.50-6.20); WHITE BLOOD COUNT (AUTO) 9.4 K/uL (4.8-10.8)
[2023-04-09 05:13] LABS: CREATININE 1.2 mg/dL (0.5-1.5); POTASSIUM 4.5 mmol/L (3.5-5.1)
[2023-04-09 08:00] VITALS: BP 131/71; PULSE 89; RESP 18; O2SAT 98
[2023-04-09] MEDS: PHENAZOPYRIDINE HCL 200 MG TABLET PO PRN (08:30)
[2023-04-09] MEDS: LOSARTAN 50 MG TABLET PO SCH (08:30)
[2023-04-09] MEDS: ASPIRIN 325MG EC TAB PO SCH (09:33)
[2023-04-09] MEDS: POLYETHYLENE GLYCOL 3350 17 GM POWD.PACK PO SCH (09:33)
[2023-04-09] MEDS: TRAMADOL HCL 50 MG TABLET PO PRN (09:37)
[2023-04-09 12:00] VITALS: BP 114/71; PULSE 88; RESP 18
[2023-04-09] MEDS ORDERED: HYDR-4060 PO (15:07)
[2023-04-09] MEDS ORDERED: DOCU-116 PO (15:07)
[2023-04-09] MEDS ORDERED: CYCL-309 PO (15:07)
[2023-04-09] MEDS ORDERED: GABA100C PO (15:07)
[2023-04-09] MEDS ORDERED: ASPI-891 PO (15:07)
[2023-04-09 16:00] VITALS: BP 137/79; PULSE 80; RESP 20
[2023-04-09] MEDS ORDERED: KETOROLAC 15MG/ML VIAL (15MG/ML) IV PRN ×2 (16:30)
[2023-04-11] MEDS ORDERED: BISACODYL 10 MG SUPP.RECT RC PRN (11:30)
== END 2023-04-09 19:15 | disposition home health service (06) ==
LOC: DAH 06:05 → DAHIP 06:06 → DAH 06:06 → 4BH 14:45
PROVIDERS: ADMIT Student in an Organized Health Care Education/Training Program; ATTEND Student in an Organized Health Care Education/Training Program
DX: M17.11 Unilateral primary osteoarthritis, right knee (principal); G89.18 Other acute postprocedural pain; D62 Acute posthemorrhagic anemia; R30.0 Dysuria; I10 Essential (primary) hypertension; E78.5 Hyperlipidemia, unspecified; N40.0 Benign prostatic hyperplasia without lower urinary tract symptoms
CPT/HCPCS: 82040; 80048 ×2; 85025; 85610; 85730; 84134; 86140; 36415 ×2; 87641; 96365; 96375; 64447; 27447; 73560; 97161; 97116 ×3; 97530 ×6; 96376; 96366; 85027; A4663; A4215 ×2; J7120; J3010 ×3; J1170 ×2; J3490 ×4; J0330; J7030; J2250; J2704; J2405 ×2; J1885 ×3; J2710; J2795 ×2; J0690 ×3; C1713 ×2; G0168; C1776 ×2; A4649 ×3; A4930; A6255; A5120; A4223; A4222; A4221; G0378 ×4

== ENCOUNTER 2023-05-06 | Emergency (ER) | payer MEDICARE ==
[~2023-05-06] MED LIST changes: +ASPI-891 PO; +CYCL-309 PO; +DOCU-116 PO; +GABA100C PO; +HYDR-4060 PO; -PHARMACY COMMUNICATION MISC SCH
[2023-05-06] MEDS ORDERED: LABETALOL 20MG SYG IV PRN (00:30)
[2023-05-06] MEDS ORDERED: LACTATED RINGERS 1000ML 1,000 ML IV SCH (00:30)
[2023-05-06] MEDS ORDERED: HYDRALAZINE 20MG/ML VIAL IV PRN (00:30)
[2023-05-06] MEDS ORDERED: ACETAMINOPHEN 325 MG TAB PO PRN (00:30)
[2023-05-06] MEDS ORDERED: ACETAMINOPHEN 650 MG SUPPOSITORY RC PRN (00:30)
[2023-05-06] MEDS ORDERED: ONDANSETRON 4MG INJ IVP PRN (00:30)
[2023-05-06] MEDS ORDERED: ZOSYN 3.375GM +NS 50ML IV SCH (00:30)
[2023-05-06] MEDS: HYDROXYZINE 25 MG TABLET PO ONE (01:36)
[2023-05-06] MEDS: FAMOTIDINE 20MG VIAL IV ONE (01:37)
[2023-05-06] MEDS: KETOROLAC 30MG VIAL (30MG/ML) IVP ONE (01:37)
[2023-05-06] MEDS: METOCLOPRAMIDE 10 MG/2 ML VIAL IVP ONE (01:37)
[2023-05-06] MEDS: DEXAMETHASONE SOD PHOSPHATE 4 MG/ML 1ML VIAL IV ONE (01:38)
[2023-05-06 02:31] VITALS: BP 139/79; PULSE 89; RESP 18
[2023-05-06] MEDS ORDERED: INSULIN HUMULIN R 100 UNIT/ML 3ML SQ SCH (07:30)
[2023-05-06] MEDS ORDERED: POLYETHYLENE GLYCOL 3350 17 GM POWD.PACK PO SCH (09:00)
[2023-05-06] MEDS ORDERED: FAMOTIDINE 20MG TAB PO SCH (09:00)
[2023-05-06] MEDS ORDERED: DOCUSATE SODIUM 100 MG CAP PO SCH (09:00)
== END 2023-05-06 02:49 | disposition home or self-care (01) ==
LOC: EDH
DX: G43.909 Migraine, unspecified, not intractable, without status migrainosus (principal); M17.11 Unilateral primary osteoarthritis, right knee; E78.00 Pure hypercholesterolemia, unspecified; F17.200 Nicotine dependence, unspecified, uncomplicated; Z79.624 Long term (current) use of inhibitors of nucleotide synthesis; Z79.82 Long term (current) use of aspirin; Z79.899 Other long term (current) drug therapy; Z85.46 Personal history of malignant neoplasm of prostate
CPT/HCPCS: 99284; 96374; 96375; 73562; J1100; J3490; J1885; J2765

== ENCOUNTER → 2024-02-12 | Outpatient (CLI) | payer MEDICARE ==
[~2024-02-12] MED LIST changes: -ASPI-891 PO; -CYCL-309 PO; -DOCU-116 PO; +FAMO20TA8 PO; -GABA100C PO; -HYDR-4060 PO; +NAPR220T57 PO; -VALA100031 PO
[2024-02-12 12:28] LABS: CREATININE 1.2 mg/dL (0.5-1.3); POTASSIUM 4.5 mmol/L (3.5-5.1)
== END | disposition home or self-care (01) ==
LOC: LAB 10:56
PROVIDERS: ATTEND Student in an Organized Health Care Education/Training Program
DX: E78.2 Mixed hyperlipidemia (principal); R07.9 Chest pain, unspecified
CPT/HCPCS: 36415; 80048

== ENCOUNTER → 2024-02-17 | Outpatient (CLI) | payer MEDICARE ==
[~2024-02-17] MED LIST changes: +IOHEXOL 350 MG/ML 100ML INFUS..BTL IV ONE
--- NOTE | 2024-02-17 09:08 | HMCIMG ---
CT CARDIAC ANGIO W/CONT. CCTA HISTORY: Chest pain COMPARISON: None TECHNIQUE: Multiple sequential axial images of the chest were obtained along with the CT angiogram of the chest study. Patient was given 100 cc of Omnipaque through intravenous route. FINDINGS: There is no evidence of pulmonary nodule or parenchymal disease. No pleural effusion or pericardial effusion is seen. There is no evidence of pneumothorax. There are normal size mediastinal and hilar lymph nodes. The heart is not enlarged. Degenerative changes of the thoracolumbar spine are present. IMPRESSION: 1. No evidence of pulmonary nodule or effusion is seen. Please see CT angiogram report of coronary arteries.
--- NOTE | 2024-02-22 17:53 | CARDIOLOGY ---
RAD REPORT: CORNARY CT ANGIO RADIOLOGY REPORT: CORONARY CT ANGIOGRAPHY DATE: Feb 22, 2024 QUALITY: Excellent CLINICAL HISTORY AND INDICATION: [ CAD ] TECHNIQUE: After obtaining a preliminary animal keeper head image, contrast imaging performed on an [employer] [id number] scanner. A dedicated, limited window, coronary imaging protocol was used, with single breath-hold, retrospective ECG gating, and automated arrhythmia rejection. 100 cc of low osmolar contrast agent: Omnipaque 350 was delivered via a 18-gauge IV catheter in the right antecubital fossa, using a power injector and followed by 60 cc of normal saline bolus as a chaser. Collimated images were reformatted at 0.5 mm intervals, and sent to an offline independent workstation for interpretation, using 3D anatomic reconstructions: Curved multiplanar reconstructions, maximum intensity projections, and multiplanar imaging. No metoprolol was administered prior to scanning due to low baseline heart rate. 0.8 mg SL nitroglycerin was given. CORONARY ARTERY DESCRIPTIONS: The coronary arteries arise in normal position. Left main coronary artery: Normal caliber vessel that trifurcates into the LAD, ramus and LCx. No stenosis. Left anterior descending coronary artery: Normal caliber vessel and gives rise to diagonal and septal branches. There is calcified plaque in the proximal LAD with 20-30% stenosis. There is 50-60% mid LAD stenosis. Ramus artery: Normal caliber. No stenosis. Left circumflex coronary artery: Normal caliber, nondominant and gives rise to a large OM branch. No stenosis. Right coronary artery: Large, dominant vessel giving rise to the PL and PDA branches. No stenosis. CAD-RADs: 5 moderate stenosis, recommend FFR CCTA. Thoracic Aorta: Normal diameter. Melyssa Marcano MD Cardiovascular Disease [facility] MELYSSA MARCANO MD Feb 22, 2024 17:53
== END | disposition home or self-care (01) ==
LOC: RAH 08:06
PROVIDERS: ATTEND Student in an Organized Health Care Education/Training Program
DX: I25.10 Atherosclerotic heart disease of native coronary artery without angina pectoris (principal); M47.815 Spondylosis without myelopathy or radiculopathy, thoracolumbar region; R07.9 Chest pain, unspecified
CPT/HCPCS: 75574; Q9967

== ENCOUNTER 2024-03-29 05:45 | Day surgery (SDC) | payer OTHER, MEDICARE ==
[2024-03-25 10:51] LABS: BASOPHILS # (AUTO) 0.05 K/uL (0.00-0.20); BASOPHILS % (AUTO) 0.8 % (0.0-5.0); EOSINOPHILS # (AUTO) 0.08 K/uL (0.00-0.70); EOSINOPHILS % (AUTO) 1.2 % (0.0-8.0); HEMATOCRIT 43.2 % (42-54); IMMATURE GRANULOCYTE ABSOLUTE 0.01 K/uL (0-1); LYMPHOCYTES # (AUTO) 0.9 K/uL (1.0-4.8); LYMPHOCYTES % (AUTO) 13.8 % (21.0-51.0); MEAN CORPUSCULAR HEMOGLOBIN 27.3 pg (27.0-33.0); MEAN CORPUSCULAR HGB CONC 31.7 g/dL (32.0-36.0); MEAN CORPUSCULAR VOLUME 86.2 fL (79-99); MONOCYTES # (AUTO) 0.4 K/uL (0.1-1.0); MONOCYTES % (AUTO) 5.4 % (3.0-13.0); NEUTROPHILS # (AUTO) 5.1 K/uL (1.8-7.7); NEUTROPHILS % (AUTO) 78.6 % (40.0-77.0); PLATELET COUNT (AUTO) 247 K/uL (130-400); RED BLOOD CELL COUNT(AUTO) 5.01 MIL/uL (4.50-6.20); RED CELL DISTRIBUTION WIDTH 14.3 % (11.0-15.5); WHITE BLOOD COUNT (AUTO) 6.4 K/uL (4.8-10.8)
[2024-03-25 11:01] LABS: APPEARANCE,URINE CLEAR (CLEAR); BILIRUBIN,URINE NEGATIVE (NEGATIVE); COLOR,URINE YELLOW (YELLOW); GLUCOSE, URINE (UA) 30 mg/dL (NEGATIVE); KETONES,URINE NEGATIVE (NEGATIVE); LEUKOCYTE ESTERASE ,URINE NEGATIVE Leu/uL (NEGATIVE); NITRATE,URINE NEGATIVE (NEGATIVE); OCCULT BLOOD,URINE SMALL (NEGATIVE); PH,URINE 6.5 (5.0-8.0); PROTEIN,URINE 20 mg/dL (NEGATIVE); UROBILINOGEN,URINE 0.2 mg/dL (0.2-1.0)
[2024-03-25 11:04] LABS: ADD UA MICROSCOPIC YES
[2024-03-25 11:06] LABS: MUCUS,URINE RARE LPF (None Seen); RBC,URINE 26-50 /HPF (0-1); SQUAMOUS EPITHELIAL CELL,UR RARE /HPF (0-2)
[2024-03-25 11:07] LABS: INR 0.98 (0.85-1.15)
[2024-03-25 11:08] LABS: PARTIAL THROMBOPLASTIN TIME 30.4 SEC (26.3-35.5)
[2024-03-25 11:13] LABS: B-TYPE NATRIURETIC PEPTIDE 81 pg/mL (0-100); CREATININE 1.3 mg/dL (0.5-1.3); POTASSIUM 4.1 mmol/L (3.5-5.1)
[2024-03-25 11:35] VITALS: BP 174/77; PULSE 64; RESP 18; TEMP 98.1
--- NOTE | 2024-03-25 12:26 | HMCIMG ---
CHEST 1VW HISTORY: Preop COMPARISON: 12/23/2023 FINDINGS: A frontal projection of the chest was obtained. No acute pulmonary infiltrates is seen. The heart is normal in size. Aortic calcifications are seen. Tortuosity of the aorta is seen. IMPRESSION: 1. No acute pulmonary infiltrate is seen.
--- NOTE | 2024-03-25 13:43 | EKG ---
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
--- NOTE | 2024-03-25 13:52 | NUR ---
report dr desean turner informed of nephrology consult for dx crf, uti and treatment, also on creat. as per md he will be cautious during procedure. ok to proceed
[2024-03-29] VITALS (10 sets, daily range): BP systolic 119–146; BP diastolic 61–76; PULSE 47–63; RESP 14–16; TEMP 97.4–97.9
[~2024-03-29] VITALS: Ht 167.6 cm; Wt 84.2 kg
[~2024-03-29 05:45] MED LIST changes: +ACET-2079 PO; +ASPI-1443 PO; -DUTA0.5C37 PO; -FAMO20TA8 PO; -IOHEXOL 350 MG/ML 100ML INFUS..BTL IV ONE; -NAPR220T57 PO; +NITR100C PO; +OMEP20CA12 PO; +PHEN-948 PO
[2024-03-29] MEDS: 0.9%NACL 1000ML 1,000 ML IV SCH (06:39)
[2024-03-29] MEDS ORDERED: VERAPAMIL HCL 2.5 MG/ML VIAL ONE (07:09)
[2024-03-29] MEDS ORDERED: IOHEXOL 350 MG/ML 100ML INFUS..BTL IV ONE ×2 (07:09→09:24)
[2024-03-29] MEDS ORDERED: LIDOCAINE HCL 400MG/20ML VIAL ONE (07:09)
[2024-03-29] MEDS ORDERED: HEParin-NS 1,000 UNIT/500 ML 1,500 ML IV ONE (07:10)
[2024-03-29] MEDS ORDERED: NITROGLYCERIN 50MG VIAL ONE (07:10)
[2024-03-29] MEDS ORDERED: HEParin 10,000 UNIT/10ML (1,000 UNIT/ML) VIAL ONE (07:10)
[2024-03-29] MEDS ORDERED: FENTanyl CITRate PF 50 MCG/1 ML 2ML VIAL ONE ×2 (07:28→09:17)
[2024-03-29] MEDS ORDERED: MIDAZOLAM HCL 1 MG/ML 2ML VIAL ONE ×3 (07:29→09:17)
[2024-03-29] MEDS ORDERED: ATROPINE 1MG SYG IVP ONE (07:38)
[2024-03-29] MEDS ORDERED: cloPIDOgrel 300MG TAB ONE (08:12)
[2024-03-29] MEDS ORDERED: ASPIRIN 325MG EC TAB PO ONE (08:12)
[2024-03-29] MEDS ORDERED: HEParin-NS 1,000 UNIT/500 ML 500 ML IV ONE (08:20)
--- NOTE | 2024-03-29 10:22 | PRN ---
PROCEDURE REPORT DATE OF PROCEDURE: Mar 29, 2024 BIG DATA PLATFORM ARCHITECT: [ Gita turner MD] PROCEDURE PERFORMED: Conscious sedation Ultrasound guided right radial artery access Selective left coronary artery angiogram Selective right coronary artery angiogram Left heart catheterization IVUS of the LAD IVL/shockwave lithotripsy of the LAD Status post successful IVUS guided PTCA/IVL (2 mm shockwave) and PCI of the prox to mid LAD x2 (2.25 by eight and 2.75 by 22 mm kathleen [place] drug-eluting stents in overlapping fashion) Status post successful PTCA of the ostial D1 (kissing balloon inflation due to plaque shift) TR band 13 lyndon over right radial artery INDICATION: Abnormal coronary CTA DESCRIPTION OF PROCEDURE: After informed consent was obtained, the patient was prepped and draped in the usual sterile fashion. A 6 Egyptian arterial sheath was inserted in the right radial artery using ultrasound guidance with first pass wall puncture. The arterial sheath was aspirated and flushed. A 6 Egyptian JL 3.5 was then advanced to the ascending aorta over an exchange length J-tip guidewire, was aspirated and flushed, and was used for selective coronary angiograms in multiple obliquities. A JR-4 was advanced in a similar fashion to the ascending aorta over the J-tipped guidewire and was used for selective right coronary angiograms in multiple oblique views with findings as outlined below. The JR-4 catheter advanced into the LV and pressures were obtained with a pull-back across the aortic valve. Following review of all the angiographic images decision was made to intervene on patient's critical LAD disease. Given patient's significant right subclavian tortuosity we exchanged the short arterial sheath for a six Egyptian 75 cm are to peak arterial sheath which was advanced into descending aorta under fluoroscopic guidance. We exchanged the diagnostic catheter for a six Egyptian XB three guide catheter which was used to selectively engage the left main coronary artery. We advanced a 014 [place] into the distal LAD under fluoroscopic guidance. We then advanced a 2nd runthrough wire into the 1st diagonal. We then proceeded with PTCA of the mid and proximal LAD using a two by 15 mm compliant balloon which was inflated to nominal pressures. We then attempted to advance an IVUS catheter border met with significant resistance. At this point we removed the runthrough diagonal wire and we advanced a microcatheter over the wire which was used to exchange the [place] wire for a more supportive 014 wiggle wire. We then advanced a GuideLiner over the wheel wire and proceeded with IVUS of the LAD. We then proceeded with shockwave lithotripsy using a 2 x 12 mm shockwave balloon which was inflated to two and four LYNDON serially for a total of eight lithotripsy sessions. We then deployed a 2.75 x 22 mm kathleen [place] drug-eluting stent within the prox to mid LAD to nominal pressures. We noted disease just beyond the stent edge so we performed repeat IVUS imaging revealing a significant greater than 70% stenosis just b eyond the recent placed stent. IVUS within the recently deployed stent revealed excellent stent apposition with no dissections or perforations. We then deployed a 2.25 x 8 mm drug-eluting stent in overlapping fashion in the mid LAD to nominal pressures. We then post dilated using a 2.5 mm noncompliant balloon to six LYNDON distally and 40 LYNDON in the mid and proximal segments. Finally with a formed post dilatation with a 2.75 x 20 mm noncompliant balloon to 18 LYNDON in the proximal LAD. At this point we noted plaque shift into a large D1 with ostial 90-99% stenosis. Given the sluggish flow down the large diagonal the decision was made to advance a runthrough wire into the 1st diagonal under fluoroscopic guidance. We then advanced a 2.5 by 15 mm noncompliant balloon within the proximal LAD stent. We then advanced a 2 x 12 mm compliant balloon over the runthrough wire into the ostial diagonal. We then performed dilatation of the side branch followed by dilatation of the LAD main branch followed by simultaneo us kissing balloon inflations to eight LYNDON respectively. We noted religion of DEO three flow with no dissections or perforations. At this point all wires and catheters removed from the body and A TR band was placed over right radial artery. FLUOROSCOPY TIME: 39.4 min LEFT HEART HEMODYNAMICS: LVEDP 7 mm Hg and no gradient Ao CORONARY ANGIOGRAM: LEFT MAIN: Patent and 0% stenosis. Gives rise to LCx, RI and LAD. LEFT ANTERIOR DESCENDING: Large vessel giving rise to two Diagonal branches. Heavily calcified with a 90- 95% prox to mid stenosis with DEO two flow. The 1st diagonal is large, bifurcating with DEO three flow. RAMUS INTERMEDIUS: Mild diffuse disease with no obstructive stenosis LEFT CIRCUMFLEX: Large and gives rise to one OM branches. Diffusely calcified with no obstructive stenosis RIGHT CORONARY ARTERY: Large, dominant vessel giving rise to PDA and PL branches. Diffusely calcified with no obstructive stenosis HEMOSTASIS: TR band 12 lyndon over right radial artery INTERVENTIONS: Status post successful IVUS guided PTCA/IVL (2 mm shockwave) and PCI of the prox to mid LAD x2 (2.25 by eight and 2.75 by 22 mm kathleen [place] drug-eluting stents in overlapping fashion) Status post successful PTCA of the ostial D1 (kissing balloon inflation due to plaque shift) COMPLICATIONS: None FINDINGS: Normal coronary anatomy and severe single-vessel obstructive CAD status post successful revascularization ESTIMATED BLOOD LOSS: 5 cc RECOMMENDATIONS/INSTRUCTIONS: Aggressive risk factor modification. Patient will require six months of dap (aspirin 81 mg daily/Plavix 75 mg daily) in addition high-intensity statin therapy Defer the use of beta-lang in the setting of bradycardia Patient follow up with Dr. Beto turner 1-2 weeks post discharge CONTRAST DELIVERED TO PATIENT (mL): 275cc GITA Jorge MD, MD Mar 29, 2024 10:22
[2024-03-29] MEDS ORDERED: 0.9%NACL 1000ML 1,000 ML IV SCH (10:30)
[2024-03-29] MEDS ORDERED: GLUCAGON 1MG KIT 1 MG ML IM PRN (10:30)
[2024-03-29] MEDS ORDERED: DEXTROSE 50%-WATER 50 ML DISP.SYRIN IV PRN (10:30)
--- NOTE | 2024-03-29 13:15 | NUR ---
VASBAND REMOVED AT THIS TIME SITE ASYMPTOMATIC
[2024-03-30] MEDS ORDERED: ASPIRIN 81MG CHEW TAB PO SCH (09:00)
== END 2024-03-29 14:05 | disposition home or self-care (01) ==
LOC: DAH 05:45
PROVIDERS: ATTEND Student in an Organized Health Care Education/Training Program
DX: I25.118 Atherosclerotic heart disease of native coronary artery with other forms of angina pectoris (principal); R93.1 Abnormal findings on diagnostic imaging of heart and coronary circulation; I10 Essential (primary) hypertension; I25.2 Old myocardial infarction; E78.2 Mixed hyperlipidemia; R06.09 Other forms of dyspnea; M19.90 Unspecified osteoarthritis, unspecified site; Z79.82 Long term (current) use of aspirin; Z79.01 Long term (current) use of anticoagulants; Z79.899 Other long term (current) drug therapy
CPT/HCPCS: 80048; 83880; 85025; 85610; 85730; 81001; 36415; 71045; 93005; 92978; 92972; 92921; 85347 ×3; 93458; C9600; C1887 ×4; C1769 ×4; C1725 ×4; C1874 ×2; C1894; A4649; C1761; C1753; J3010 ×2; J3490 ×3; J7030; J1644 ×3; J2250 ×3; Q9967 ×2; A4215; A4222; A4221; A4663; A4216; A4606; Q9965 ×3; A4223 ×3; 99156; 99157; J0461